=== PATIENT | female | born 1980 | race Caucasian/White ===

== ENCOUNTER 2016-11-03 22:42 | Emergency (ER) | payer MEDICAID, OTHER ==
[~2016-11-03] VITALS: Ht 154.9 cm; Wt 62.1 kg
[~2016-11-03 22:42] MED LIST: PRED10 PO
[2016-11-03 22:45] VITALS: BP 122/81; PULSE 72; RESP 16; TEMP 98; O2SAT 99
--- NOTE | 2016-11-03 22:58 | PD ---
HPI Chief Complaint: dysuria Time Seen by Provider: 22:51 Travel History International Travel<30 days: No Contact w/Intl Traveler<30days: No Traveled to known affect area: No History of Present Illness HPI This 35-year-old female says that she was at work and started having some bilateral flank pain and also some pain with urination. She gets frequent urinary tract infections and feels she is having one. There is no chance of . She had a hysterectomy in the age of 29. She also has a history of ITP. She has lupus but is not on any medication for it at this time. She has had a lupus flare triggered by Bactrim in the past. SHe is not aware of fever. History Social History Alcohol Use: Yes (rare) Tobacco Use: No (never) Allergies-Medications (Allergen,Severity, Reaction): Coded Allergies: Penicillin (Verified Allergy, Severe, SWELLING, RASH, 11/03/16) Sulfa (Verified Adverse Reaction, Severe, LUPUS FLARE, 11/03/16) Uncoded Allergies: cillins (Allergy, Severe, 06/14/16) Reported Meds & Prescriptions Reported Meds & Active Scripts Active Review of Systems General / Constitutional: Positive: Chills, No: Fever Eyes: No: Diploplia, Blurred Vision HENT: No: Headaches, Vertigo Cardiovascular: No: Chest Pain or Discomfort, Palpitations Respiratory: No: Cough, Shortness of Breath Gastrointestinal: No: Nausea, Vomiting Genitourinary: Positive: Urgency, Frequency Musculoskeletal: No: Myalgias Skin: No Rash Psychiatric: No: Anxiety Physical Exam Narrative GENERAL: Well-developed female SKIN: Focused skin assessment warm/dry. HEAD: Atraumatic. Normocephalic. EYES: Pupils equal and round. No scleral icterus. No injection or drainage. ENT: No nasal bleeding or discharge. Mucous membranes pink and moist. NECK: Trachea midline. No JVD. CARDIOVASCULAR: Regular rate and rhythm. No murmur appreciated. RESPIRATORY: No accessory muscle use. Clear to auscultation. Breath sounds equal bilaterally. GASTROINTESTINAL: Abdomen soft, non-tender, nondistended. Hepatic and splenic margins not palpable. There is mild bilateral CVA tenderness MUSCULOSKELETAL: No obvious deformities. No clubbing. No cyanosis. No edema. NEUROLOGICAL: Awake and alert. No obvious cranial nerve deficits. Motor grossly within normal limits. Normal speech. PSYCHIATRIC: Appropriate mood and affect; insight and judgment normal. Data Data Last Documented VS Vital Signs Date Time Temp Pulse Resp B/P Pulse Ox O2 Delivery O2 Flow Rate FiO2 11/03/16 22:45 98.0 72 16 122/81 99 Orders Urinalysis - C+S If Indicated (11/03/16 22:57) Nitrofurantoin Monohyd Macrocr (Macrobid (11/03/16 23:30) Urine Culture (11/03/16 23:00) Labs Laboratory Tests Test 11/03/16 23:00 Urine Color ORANGE Urine Turbidity CLEAR Urine pH 5.5 Urine Specific [place] 1.005 Urine Protein 30 mg/dL Urine Glucose (UA) 100 mg/dL Urine Ketones NEG mg/dL Urine Occult Blood NEG Urine Nitrite POS Urine Bilirubin NEG Urine Leukocyte Esterase MOD Urine RBC 0-2 /hpf Urine WBC 25-49 /hpf Urine Squamous Epithelial 0-5 /hpf Cells Urine Bacteria FEW /hpf Microscopic Urinalysis Comment CULTURE INDICATED MDM Medical Decision Making Medical Screen Exam Complete: Yes Emergency Medical Condition: Yes Medical Record Reviewed: Yes Differential Diagnosis Differential includes UTI, cystitis, back pain Narrative Course Urinalysis shows 25-50 white cells consistent with UTI Diagnosis Primary Impression: Urinary tract infection Qualified Code: N39.0 - Urinary tract infection without hematuria, site unspecified Scripts Phenazopyridine (Pyridium)200 Mg [id number] Mg PO Q8H PRN (DYSURIA) #20 TAB Ref 0 Prov:Ruben Burks MD 11/03/16 Hydrocodone-Acetaminophen (Lortab)7.5-325 Mg Tab1 Tab PO Q4H PRN (PAIN) #20 TAB Ref 0 Prov:Ruben Burks MD 11/03/16 Nitrofurantoin Monohydrate Macrocrystals (Macrobid)100 Mg [id number] Mg PO BID 7 Days Ref 0 Prov:Ruben Burks MD 11/03/16 Disposition: 01 DISCHARGE HOME Condition: Stable Ruben Burks MD Nov 03, 2016 22:58
[2016-11-03 23:13] LABS: BLOOD, URINE NEG (NEG); GLUCOSE,URINE 100 mg/dL (NEG); KETONE, URINE NEG (NEG); PH, URINE 5.5 (5.0-8.5)
[2016-11-03 23:18] LABS: NITRITE,URINE POS (NEG)
[2016-11-03 23:22] LABS: BACTERIA, URINE FEW /hpf; COMMENT (UR) CULTURE INDICATED; CULTURE IF INDICATED CULTURE INDICATED; RBC, URINE 0-2 /hpf (0-3); SQUAMOUS EPITHELIAL CELL URINE 0-5 /hpf (0-5); URINE COLOR ORANGE (YELLW/STRAW)
[2016-11-03] MEDS ORDERED: MACR100C2 PO (23:24)
[2016-11-03] MEDS ORDERED: PYRI200T4 PO (23:24)
[2016-11-03] MEDS ORDERED: HYDR-3534 PO (23:24)
[2016-11-03] MEDS ORDERED: NITROFURANTOIN MONOHYD MACROCR 100 MG CAP PO ONE (23:30)
[2016-11-03 23:45] VITALS: BP 117/70
== END 2016-11-03 23:45 | disposition home or self-care (01) ==
LOC: PHED 22:42
DX: N39.0 Urinary tract infection, site not specified (principal); Z87.440 Personal history of urinary (tract) infections; M32.9 Systemic lupus erythematosus, unspecified; D69.3 Immune thrombocytopenic purpura
CPT/HCPCS: 81001; 87086; 99284

== ENCOUNTER 2017-09-23 21:43 | Emergency (ER) | payer SELFPAY ==
[~2017-09-23] VITALS: Ht 154.9 cm; Wt 67.5 kg
[~2017-09-23 21:43] MED LIST changes: +HYDR-3534 PO; +MACR100C2 PO; -PRED10 PO; +PYRI200T4 PO
[2017-09-23 21:48] VITALS: BP 131/68; PULSE 68; RESP 18; TEMP 98.1; O2SAT 99
[2017-09-23] MEDS ORDERED: [UNRECOGNIZED DRUG - OTHER] VAGINAL (22:01)
[2017-09-23] MEDS ORDERED: [UNRECOGNIZED DRUG - CODE] PO (22:01)
[2017-09-23 22:15] LABS: BILIRUBIN, URINE NEG (NEG); BLOOD, URINE NEG (NEG); GLUCOSE,URINE NEG (NEG); KETONE, URINE NEG (NEG); NITRITE,URINE POS (NEG); PH, URINE 5.5 (5.0-8.5); URINE LEUKOCYTE ESTERASE SMALL (NEG)
[2017-09-23 22:25] LABS: URINE COLOR ORANGE (YELLW/STRAW)
[2017-09-23 22:26] LABS: BACTERIA, URINE FEW /hpf; RBC, URINE 0-2 /hpf (0-3); SQUAMOUS EPITHELIAL CELL URINE 0-5 /hpf (0-5)
[2017-09-23] MEDS ORDERED: NITROFURANTOIN MONOHYD MACROCR 100 MG CAP PO ONE (22:30)
[2017-09-23] MEDS ORDERED: MACR100C2 PO (22:32)
--- NOTE | 2017-09-23 22:33 | PD ---
HPI . Urinary symptoms Chief Complaint: Complaint Time Seen by Provider: 21:51 Travel History International Travel<30 days: No Contact w/Intl Traveler<30days: No Traveled to known affect area: No History of Present Illness HPI This patient presents with a chief complaint of a probable urinary tract infection. She reports the onset of symptoms today. The symptoms have gotten progressively worse throughout the day. She describes dysuria, frequency and urgency. Just a fever earlier today. No vomiting. Symptoms have been unrelieved by increased fluids and AZO. PFSH Past Medical History Anemia: Yes (GESTATIONAL) Anxiety: Yes Depression: Yes Cancer: No Cardiovascular Problems: No Diabetes: No Diminished Hearing: No Endocrine: No Gastrointestinal Disorders: Yes (ENLARGED LIVER, 2 HEMANGIOMAS) Genitourinary: Yes ("PRECANCEROUS CELLS ON MY UTERUS") Hepatitis: No Hiatal Hernia: No Hypertension: No Immune Disorder: Yes (Lupus, ITP) Implanted Vascular Access Dvce: Yes (Screw in left foot ) Musculoskeletal: Yes (Joint pain muscle fatigue r/t lupus) Neurologic: No Psychiatric: No Reproductive: No Respiratory: No Immunizations Current: Yes Thyroid Disease: No Tetanus Vaccination: > 5 Years Influenza Vaccination: No ?: Not : 2 Para: 2 Ovarian Cysts: Yes Tubal Ligation: Yes Past Surgical History Abdominal Surgery: Yes (RT INGUINAL HERNIA REPAIR X 2) Body Medical Devices: Screw in left foot Section: Yes (X2) Gynecologic Surgery: Yes (TUBAL; C-SECT X 2) Hysterectomy: Yes Pacemaker: No Other Surgery: Yes Social History Alcohol Use: Yes (Rarely ) Tobacco Use: No Substance Use: No Allergies-Medications (Allergen,Severity, Reaction): Coded Allergies: penicillin G (Unverified Allergy, Severe, SWELLING, RASH, 09/23/17) Sulfa (Sulfonamide Antibiotics) (Unverified Adverse Reaction, Severe, LUPUS FLARE, 09/23/17) Reported Meds & Prescriptions Reported Meds & Active Scripts Active Reported Boric Acid 454 Gm Granules 1 Cap VAGINAL 2XWEEK Azo Urinary Tract Health 95 & 250-30 mg (Phenazopyridine-Cranberry) 1 Tab 2 Tab PO Q4-6H Review of Systems Except as stated in HPI: all other systems reviewed are Neg General / Constitutional: Positive: Fever, Chills Genitourinary: Positive: Urgency, Frequency, Dysuria Physical Exam Narrative GENERAL: Awake and alert and in no acute distress. SKIN: Warm and dry. HEAD: Normocephalic/atraumatic. EYES: Pupils are equal. Extraocular movements are intact. NECK: Normal range of motion. RESPIRATORY: Nonlabored respirations. : No CVA tenderness. MUSCULOSKELETAL: Atraumatic. NEUROLOGICAL: Nonfocal. PSYCHIATRIC: Appropriate mood and affect. Data Data Last Documented VS Vital Signs Date Time Temp Pulse Resp B/P (MAP) Pulse Ox O2 Delivery O2 Flow Rate FiO2 09/23/17 21:48 98.1 68 18 131/68 (89) 99 Orders Orders Urinalysis - C+S If Indicated (09/23/17 21:51) Urine Culture (09/23/17 22:05) Nitrofurantoin Monohyd Macrocr (Macrobid (09/23/17 22:30) Labs Laboratory Tests Test 09/23/17 22:05 Urine Color ORANGE Urine Turbidity CLEAR Urine pH 5.5 Urine Specific [place] 1.011 Urine Protein NEG mg/dL Urine Glucose (UA) NEG mg/dL Urine Ketones NEG mg/dL Urine Occult Blood NEG Urine Nitrite POS Urine Bilirubin NEG Urine Leukocyte Esterase SMALL Urine RBC 0-2 /hpf Urine WBC 9-14 /hpf Urine Squamous Epithelial Cells 0-5 /hpf Urine Bacteria FEW /hpf Microscopic Urinalysis Comment CULTURE INDICATED MDM Medical Decision Making Medical Screen Exam Complete: Yes Emergency Medical Condition: Yes Differential Diagnosis Final differential diagnosis of urinary symptoms includes but is not limited to UTI, kidney stone, pyelonephritis, bacterial vaginosis, yeast infection, urinary retention Narrative Course This patient presents with the chief complaint of dysuria, frequency and urgency. UA>>pos nitrite, small LE, 9-14 WBCs and few bact She will be treated with Macrobid. She can continue the AZO for symptomatic treatment. Continue increased fluids. Diagnosis Primary Impression: Urinary tract infection Qualified Codes: N30.00 - Acute cystitis without hematuria Patient Instructions: General Instructions, Urinary Tract Infection in Women ( [place]) Med/Other Pt SpecificInfo: Prescription(s) given Scripts Nitrofurantoin Monohydrate Macrocrystals (Macrobid) 100 Mg Cap 100 MG PO BID for Infection for 7 Days, CAP 0 Refills Prov: Brooklyn Willams MD 09/23/17 Disposition: 01 DISCHARGE HOME Condition: Stable Brooklyn Willams MD Sep 23, 2017 22:33
== END 2017-09-23 22:39 | disposition home or self-care (01) ==
LOC: PHED 21:43
DX: N39.0 Urinary tract infection, site not specified (principal); B96.20 Unspecified Escherichia coli [E. coli] as the cause of diseases classified elsewhere; F41.9 Anxiety disorder, unspecified; F32.9 Major depressive disorder, single episode, unspecified; M32.9 Systemic lupus erythematosus, unspecified; D69.3 Immune thrombocytopenic purpura; D64.9 Anemia, unspecified; R16.0 Hepatomegaly, not elsewhere classified; Z88.0 Allergy status to penicillin
CPT/HCPCS: 81001; 87077; 87086; 87186; 99283

== ENCOUNTER 2018-01-06 16:09 | Emergency (ER) | payer MEDICAID ==
[~2018-01-06] VITALS: Ht 154.9 cm; Wt 66.0 kg
[~2018-01-06 16:09] MED LIST changes: -HYDR-3534 PO; -PYRI200T4 PO; +[UNRECOGNIZED DRUG - CODE] PO; +[UNRECOGNIZED DRUG - OTHER] VAGINAL
[2018-01-06 16:11] VITALS: BP 111/72; PULSE 75; RESP 16; TEMP 98.2; O2SAT 96
[2018-01-06] MEDS ORDERED: PHEN0.4T PO (16:28)
--- NOTE | 2018-01-06 16:28 | PD ---
HPI Chief Complaint: Complaint Time Seen by Provider: 16:15 Travel History International Travel<30 days: No Contact w/Intl Traveler<30days: No Traveled to known affect area: No History of Present Illness HPI Patient comes to the emergency department for evaluation of possible UTI that began yesterday. Patient reports dysuria, frequency, and low back pain without radiation similar to previous UTIs. Patient reports this will be her third UTI approximately 2 months. Patient was recently put on Cipro last month. Patient reports that she had a total hysterectomy but still gets periods. Denies any vaginal discharge, nausea, vomiting, or fevers. Denies anything making symptoms better or worse. PFSH Past Medical History Anemia: Yes (GESTATIONAL) Anxiety: Yes Depression: Yes Cancer: No Cardiovascular Problems: No Diabetes: No Diminished Hearing: No Endocrine: No Gastrointestinal Disorders: Yes (ENLARGED LIVER, 2 HEMANGIOMAS) Genitourinary: Yes ("PRECANCEROUS CELLS ON MY UTERUS") Hepatitis: No Hiatal Hernia: No Hypertension: No Immune Disorder: Yes (Lupus, ITP) Implanted Vascular Access Dvce: Yes (Screw in left foot ) Musculoskeletal: Yes (Joint pain muscle fatigue r/t lupus) Neurologic: No Psychiatric: No Reproductive: No Respiratory: No Immunizations Current: Yes Thyroid Disease: No ?: Not LMP: 3.5 WEEKS AGO : 2 Para: 2 Ovarian Cysts: Yes Tubal Ligation: Yes Past Surgical History Abdominal Surgery: Yes (RT INGUINAL HERNIA REPAIR X 2) Body Medical Devices: Screw in left foot Section: Yes (X2) Gynecologic Surgery: Yes (TUBAL; C-SECT X 2) Hysterectomy: Yes Pacemaker: No Other Surgery: Yes Social History Alcohol Use: Yes (Rarely ) Tobacco Use: No Substance Use: No Allergies-Medications (Allergen,Severity, Reaction): Coded Allergies: penicillin G (Unverified Allergy, Severe, SWELLING, RASH, 01/06/18) Sulfa (Sulfonamide Antibiotics) (Unverified Adverse Reaction, Severe, LUPUS FLARE, 01/06/18) Reported Meds & Prescriptions Reported Meds & Active Scripts Active Macrobid (Nitrofurantoin Monohydrate Macrocrystals) 100 Mg Capsule 100 Mg PO BID 10 Days Reported Pyridium (Phenazopyridine HCl) 100 Mg Tab 100 Mg PO Q8H PRN Boric Acid 454 Gm Granules 1 Cap VAGINAL 2XWEEK Review of Systems Except as stated in HPI: all other systems reviewed are Neg Physical Exam Narrative GENERAL: Well-developed, overly nourished, in no acute distress, and non-ill appearing. SKIN: Focused skin assessment warm and dry. HEAD: Atraumatic. Normocephalic. EYES: Pupils equal and round. EOMI. No scleral icterus. No injection or drainage. ENT: No nasal bleeding or discharge. Mucous membranes pink and moist. NECK: Trachea midline. Supple. No nuclear rigidity. RESPIRATORY: No accessory muscle use. No respiratory distress. Clear to auscultation. Breath sounds equal bilaterally. GASTROINTESTINAL: Abdomen soft, non-tender, nondistended, and no guarding. Hepatic and splenic margins not palpable. No pulsatile mass. No CVA tenderness. MUSCULOSKELETAL: No obvious deformities. No clubbing. No cyanosis. No edema. Full range of motion. NEUROLOGICAL: Awake and alert. No obvious cranial nerve deficits. Motor grossly within normal limits. Normal speech. PSYCHIATRIC: Appropriate mood and affect; insight and judgment normal. Data Data Last Documented VS Vital Signs Date Time Temp Pulse Resp B/P (MAP) Pulse Ox O2 Delivery O2 Flow Rate FiO2 01/06/18 17:53 69 16 106/54 (71) 95 01/06/18 16:11 98.2 Orders Orders Gc And Chlamydia Pcr (01/06/18 16:25) Urinalysis - C+S If Indicated (01/06/18 16:25) Ed Urine Pregnancytest Poc (01/06/18 16:25) Urine Culture (01/06/18 16:23) Ed Discharge Order (01/06/18 17:10) Labs Laboratory Tests Test 01/06/18 16:23 Urine Collection Type CLEAN CATCH Urine Color ORANGE Urine Turbidity SL CLOUDY Urine pH 6.5 Urine Specific [place] 1.020 Urine Protein 100 mg/dL Urine Glucose (UA) 100 mg/dL Urine Ketones TRACE mg/dL Urine Occult Blood NEG Urine Nitrite POS Urine Bilirubin NEG Urine Urobilinogen 4.0 MG/DL Urine Leukocyte Esterase MOD Urine RBC 4-9 /hpf Urine WBC 100-200 /hpf Urine WBC Clumps MOD Urine Squamous Epithelial Cells > 8 /hpf Urine Renal Epithelial Cells > 8 /hpf Urine Bacteria FEW /hpf Microscopic Urinalysis Comment CULTURE INDICATED MDM Medical Decision Making Medical Screen Exam Complete: Yes Emergency Medical Condition: Yes Differential Diagnosis UTI, STD, PID Narrative Course The patient presentation with history and evaluation are consistent with UTI. There is no evidence of pyelonephritis. The patient is tolerating fluids and no fever. There is no clinical evidence to suggest atypical cervicitis, PID, or appendicitis. The patient was discharged on antibiotics and given warnings to return if condition worsens in any way, fever, vomiting and unable to tolerate medications or fluids, worsening back pain, or as needed. The patient was instructed to follow up with their physician. The patient agrees with plan of care. Patient in no obvious distress upon re-evaluation. All pertinent laboratory result(s) discussed with patient. Patient was asked if they wanted to speak to my attending, which the patient did not wish to do at this time. Any questions/ concerns in reference to patient diagnosis/condition discussed and clarified prior to patient's discharge. Reinforced sheer importance of close follow up with patient's primary physician or primary care clinic. Instructed patient to return to ED immediately, if symptoms return/worsen. Patient showed understanding of above instructions. Further instructions and recommendations were detailed in discharge paperwork. Patient ambulated without difficulty out of ED at discharge. Diagnosis Primary Impression: UTI (urinary tract infection) Qualified Codes: N39.0 - Urinary tract infection, site not specified; R31.9 - Hematuria, unspecified Patient Instructions: General Instructions, Urinary Tract Infection in Women ( ED) Additional Instructions: Follow-up with your primary care physician in 5-7 days for evaluation. Take all medication as prescribed. Drink plenty of non-caffeinated and nonalcoholic fluids. Return to the emergency department if symptoms get worse. Med/Other Pt SpecificInfo: Prescription(s) given Scripts Nitrofurantoin Monohydrate Macrocrystals (Macrobid) 100 Mg Capsule 100 MG PO BID for Infection for 10 Days, #20 CAP 0 Refills Prov: Maria Luz Berumen MD 01/06/18 Disposition: 01 DISCHARGE HOME Condition: Stable Declan Epps Jan 06, 2018 16:28
[2018-01-06 16:54] LABS: BILIRUBIN, URINE NEG (NEG); BLOOD, URINE NEG (NEG); GLUCOSE,URINE 100 mg/dL (NEG); KETONE, URINE TRACE mg/dL (NEG); NITRITE,URINE POS (NEG); PH, URINE 6.5 (5.0-8.5); URINE LEUKOCYTE ESTERASE MOD (NEG)
[2018-01-06 17:02] LABS: URINE COLOR ORANGE (YELLW/STRAW)
[2018-01-06 17:03] LABS: RENAL EPITHELIAL CELLS > 8 /hpf; SQUAMOUS EPITHELIAL CELL URINE > 8 /hpf (0-5); WBC, URINE 100-200 /hpf (0-5); WHITE BLOOD CELL CLUMPS MOD
[2018-01-06 17:04] LABS: BACTERIA, URINE FEW /hpf
[2018-01-06] MEDS ORDERED: MACR100C2 PO (17:08)
[2018-01-06 17:53] VITALS: BP 106/54
== END 2018-01-06 18:04 | disposition home or self-care (01) ==
LOC: PHEFT 16:09
DX: N39.0 Urinary tract infection, site not specified (principal); D64.9 Anemia, unspecified; F41.9 Anxiety disorder, unspecified; F32.9 Major depressive disorder, single episode, unspecified; R16.0 Hepatomegaly, not elsewhere classified; M32.9 Systemic lupus erythematosus, unspecified; D69.3 Immune thrombocytopenic purpura; Z88.0 Allergy status to penicillin; Z88.2 Allergy status to sulfonamides; Z79.899 Other long term (current) drug therapy
CPT/HCPCS: 81001; 84703; 87086; 87491; 87591; 99283